=== PATIENT | female | born 1935 | race African-American/Black ===

== ENCOUNTER 2017-09-14 15:41 | Inpatient (IN) ==
[2017-09-14] MEDS ORDERED: DEXTROSE 50% 25 GM/50 ML VIAL IV PRN (18:19)
[2017-09-14] MEDS ORDERED: GLUCAGON 1 MG VIAL IM PRN (18:19)
[2017-09-14 18:58] LABS: Basophils % 0.9 % (0.0-0.8); Eosinophils % 0.4 % (0.00-10.9); Hematocrit 30.4 VOL% (35.7-47.0); Immature Granulocytes % 0.9 %; Immature Granulocytes Absolute 0.02 #; Lymphocytes # 0.9 10*3/uL (1.4-4.0); Lymphocytes % 41.2 % (21.3-54.2); Mean Corpuscular HGB Conc 32.9 GM/DL (32-36); Mean Corpuscular Hemoglobin 28 PG (27-34); Mean Corpuscular Volume 83.7 FL (87-102); Mean Platelet Volume 9.7 FL (9.6-12.0); Monocytes # 0.4 10*3/uL (0.11-0.8); Monocytes % 16.4 % (1.7-12.7); Neutrophils # 0.9 10*3/uL (1.4-7.4); Neutrophils % 40.2 % (38.7-73.9); Platelet Count 140 T/CUMM (130-400); Red Blood Count 3.63 MC/CUMM (3.8-5.5); Red Cell Distribution Width 13.3 % (9.3-17.3); White Blood Count 2.3 T/CUMM (4-12)
[2017-09-14 19:07] LABS: INR 1.1; PT Patient Result 11.5 SECS; Partial Thromboplastin Time 29.6 SECS (0-40)
[2017-09-14 19:18] LABS: Lymphocytes 40 % (20-55); Platelet Estimate Decreased; Segmented Neutrophils 46 % (50-85); Total Cells Counted 100
[2017-09-14 19:19] LABS: Hypochromasia 1+; Ovalocytes 1+; Poikilocytosis 1+; Polychromasia Slight
[2017-09-14 19:26] LABS: Albumin 2.6 G/DL (3.4-5.0); Bilirubin,Total 0.4 MG/DL (0.2-1.0); Calcium 7.9 MG/DL (8.5-10.1); Osmolality,Calculated 269.1 MOS/KG (273-304); Potassium 3.3 MMOL/L (3.5-5.1); Total Protein 7.2 G/DL (6.4-8.3)
[2017-09-14 19:30] LABS: ABG Base Excess 7.5 MMOL/L (-2.5-2.5); ABG HCO3 31.3 MMOL/L (20-26); ABG Oxygen Saturation 99.6 % (95-100); ABG PCO2 23.2 MM HG (35-48); ABG TCO2 24.8 MMOL/L (23-27)
[2017-09-14 19:35] LABS: ABG PH 7.679 (7.35-7.45)
[2017-09-14] MEDS ORDERED: APIXABAN 2.5 MG TABLET PO SCH (21:00)
[2017-09-14] MEDS ORDERED: POTASSIUM CHLORIDE 20 MEQ TABLET PO ONE (21:00)
[2017-09-14] MEDS: PHENYTOIN 100 MG/4 ML UDCUP PO SCH (22:18)
[2017-09-14] MEDS: INSULIN LISPRO 100 UNIT/ML SUBCUT SCH (22:18)
[2017-09-14] MEDS: ENOXAPARIN 80 MG/0.8 ML SYRINGE SUBCUT SCH (22:18)
[2017-09-14] MEDS: COLCHICINE 0.6 MG TABLET PO SCH (22:18)
[2017-09-14] MEDS: amLODIPine 10 MG TABLET PO SCH (22:25)
[2017-09-15 00:46] LABS: Apearance,Urine CLEAR (Clear); Bilirubin,Urine Negative (Negative); Blood, Urine Negative (Negative); Glucose,Urine (UA) Negative (Negative); Ketones,Urine Negative (Negative); Mucus,Urine Occasional /LPF (Occasional); Nitrite,Urine Negative (Negative); Protein,Urine Negative; RBC,Urine <1 /HPF (0-4); Squamous Epithelial Cell,Urine Occasional /HPF (0-10); Urine Color Yellow (Yellow); Urine Specific Gravity 1.016 (1.001-1.035); Urine Urobilinogen < 2.0 EU/DL (0.2-1.0); WBC,Urine <1 /HPF (0-6)
[2017-09-15 03:25] LABS: Basophils % 0.5 % (0.0-0.8); Eosinophils % 1.4 % (0.00-10.9); Hematocrit 29.4 VOL% (35.7-47.0); Hemoglobin 9.8 GM/DL (12.0-16.0); Immature Granulocytes % 0.9 %; Immature Granulocytes Absolute 0.02 #; Lymphocytes # 0.9 10*3/uL (1.4-4.0); Lymphocytes % 41.1 % (21.3-54.2); Mean Corpuscular HGB Conc 33.3 GM/DL (32-36); Mean Corpuscular Hemoglobin 28 PG (27-34); Mean Corpuscular Volume 83.5 FL (87-102); Mean Platelet Volume 9.1 FL (9.6-12.0); Monocytes # 0.4 10*3/uL (0.11-0.8); Monocytes % 19.2 % (1.7-12.7); Neutrophils # 0.8 10*3/uL (1.4-7.4); Neutrophils % 36.9 % (38.7-73.9); Platelet Count 134 T/CUMM (130-400); Red Blood Count 3.52 MC/CUMM (3.8-5.5); Red Cell Distribution Width 13.7 % (9.3-17.3); White Blood Count 2.1 T/CUMM (4-12)
[2017-09-15 04:02] LABS: Calcium 7.9 MG/DL (8.5-10.1); Magnesium 2.4 MG/DL (1.8-2.4); Osmolality,Calculated 273.8 MOS/KG (273-304); Potassium 4.1 MMOL/L (3.5-5.1)
[2017-09-15 04:41] LABS: Band Neutrophils 1 % (0-10); Eosinophils 3 % (0-10); Lymphocytes 50 % (20-55); Platelet Estimate Normal; Segmented Neutrophils 42 % (50-85); Total Cells Counted 100
[2017-09-15 04:59] LABS: Albumin 2.5 G/DL (3.4-5.0); Bilirubin,Total 0.6 MG/DL (0.2-1.0); Calcium 7.9 MG/DL (8.5-10.1); Potassium 4.1 MMOL/L (3.5-5.1); Total Protein 6.7 G/DL (6.4-8.3)
[2017-09-15] MEDS: INSULIN LISPRO 100 UNIT/ML SUBCUT SCH ×4 (09:03→20:32)
[2017-09-15] MEDS: amLODIPine 10 MG TABLET PO SCH ×3 (09:06→20:35)
[2017-09-15] MEDS: PANTOPRAZOLE 40 MG TABLET PO SCH (09:09)
[2017-09-15] MEDS: COLCHICINE 0.6 MG TABLET PO SCH ×2 (09:09→20:35)
[2017-09-15] MEDS: ENOXAPARIN 80 MG/0.8 ML SYRINGE SUBCUT SCH (09:10)
[2017-09-15] MEDS: PHENYTOIN 100 MG/4 ML UDCUP PO SCH ×3 (09:10→20:35)
[2017-09-16 08:38] LABS: Basophils % 0.6 % (0.0-0.8); Eosinophils % 1.2 % (0.00-10.9); Hematocrit 30.6 VOL% (35.7-47.0); Hemoglobin 10.1 GM/DL (12.0-16.0); Immature Granulocytes % 0.6 %; Immature Granulocytes Absolute 0.01 #; Lymphocytes # 0.5 10*3/uL (1.4-4.0); Lymphocytes % 30.5 % (21.3-54.2); Mean Corpuscular Hemoglobin 28 PG (27-34); Mean Corpuscular Volume 85.2 FL (87-102); Mean Platelet Volume 10.1 FL (9.6-12.0); Monocytes # 0.4 10*3/uL (0.11-0.8); Neutrophils # 0.7 10*3/uL (1.4-7.4); Neutrophils % 45.1 % (38.7-73.9); Platelet Count 122 T/CUMM (130-400); Red Blood Count 3.59 MC/CUMM (3.8-5.5); Red Cell Distribution Width 13.8 % (9.3-17.3); White Blood Count 1.6 T/CUMM (4-12)
[2017-09-16 09:09] LABS: Albumin 2.5 G/DL (3.4-5.0); Bilirubin,Total 0.6 MG/DL (0.2-1.0); Calcium 7.7 MG/DL (8.5-10.1); Osmolality,Calculated 274.7 MOS/KG (273-304); Potassium 3.9 MMOL/L (3.5-5.1); Total Protein 7.2 G/DL (6.4-8.3)
[2017-09-16 09:15] LABS: Band Neutrophils 1 % (0-10); Eosinophils 1 % (0-10); Hypochromasia 1+; Lymphocytes 28 % (20-55); Microcytosis Slight; Ovalocytes Slight; Platelet Estimate Adequate; Segmented Neutrophils 50 % (50-85); Total Cells Counted 100
[2017-09-16] MEDS: INSULIN LISPRO 100 UNIT/ML SUBCUT SCH ×4 (09:50→20:54)
[2017-09-16] MEDS: PANTOPRAZOLE 40 MG TABLET PO SCH (09:56)
[2017-09-16] MEDS: COLCHICINE 0.6 MG TABLET PO SCH ×2 (09:56→21:07)
[2017-09-16] MEDS: PHENYTOIN 100 MG/4 ML UDCUP PO SCH ×3 (09:58→21:08)
[2017-09-16] MEDS: amLODIPine 10 MG TABLET PO SCH ×3 (10:02→21:06)
[2017-09-16] MEDS: WARFARIN 10 MG TABLET PO SCH (17:30)
[2017-09-17 07:31] LABS: Basophils % 0.7 % (0.0-0.8); Hematocrit 29.2 VOL% (35.7-47.0); Hemoglobin 9.6 GM/DL (12.0-16.0); Immature Granulocytes % 0.7 %; Immature Granulocytes Absolute 0.01 #; Lymphocytes # 0.5 10*3/uL (1.4-4.0); Lymphocytes % 34.9 % (21.3-54.2); Mean Corpuscular HGB Conc 32.9 GM/DL (32-36); Mean Corpuscular Hemoglobin 28 PG (27-34); Mean Corpuscular Volume 84.4 FL (87-102); Monocytes # 0.3 10*3/uL (0.11-0.8); Monocytes % 22.1 % (1.7-12.7); Neutrophils # 0.6 10*3/uL (1.4-7.4); Neutrophils % 39.6 % (38.7-73.9); Platelet Count 108 T/CUMM (130-400); Red Blood Count 3.46 MC/CUMM (3.8-5.5); Red Cell Distribution Width 13.7 % (9.3-17.3); White Blood Count 1.5 T/CUMM (4-12)
[2017-09-17 08:13] LABS: Eosinophils 3 % (0-10); Lymphocytes 36 % (20-55); Segmented Neutrophils 44 % (50-85); Total Cells Counted 100
[2017-09-17 08:14] LABS: Hypochromasia 1+; Microcytosis Slight; Ovalocytes Few
[2017-09-17 08:15] LABS: Platelet Estimate Decreased
[2017-09-17] MEDS: INSULIN LISPRO 100 UNIT/ML SUBCUT SCH ×4 (08:16→21:40)
[2017-09-17] MEDS: amLODIPine 10 MG TABLET PO SCH ×3 (08:38→20:27)
[2017-09-17] MEDS: LACTULOSE 20 GM/30 ML UDCUP PO PRN (08:45)
[2017-09-17] MEDS: PANTOPRAZOLE 40 MG TABLET PO SCH (08:46)
[2017-09-17] MEDS: PHENYTOIN 100 MG/4 ML UDCUP PO SCH ×3 (08:46→20:27)
[2017-09-17] MEDS: COLCHICINE 0.6 MG TABLET PO SCH ×2 (08:46→20:25)
[2017-09-17 12:24] LABS: INR 1.1; PT Patient Result 11.1 SECS
[2017-09-17] MEDS: ENOXAPARIN 80 MG/0.8 ML SYRINGE SUBCUT SCH (17:38)
[2017-09-17] MEDS: WARFARIN 10 MG TABLET PO SCH (17:38)
[2017-09-18 07:01] LABS: Basophils % 0.6 % (0.0-0.8); Eosinophils % 2.2 % (0.00-10.9); Hematocrit 32.4 VOL% (35.7-47.0); Hemoglobin 10.4 GM/DL (12.0-16.0); Lymphocytes # 0.6 10*3/uL (1.4-4.0); Lymphocytes % 32.6 % (21.3-54.2); Mean Corpuscular HGB Conc 32.1 GM/DL (32-36); Mean Corpuscular Hemoglobin 28 PG (27-34); Mean Corpuscular Volume 86.4 FL (87-102); Mean Platelet Volume 9.3 FL (9.6-12.0); Monocytes # 0.3 10*3/uL (0.11-0.8); Monocytes % 17.1 % (1.7-12.7); Neutrophils # 0.9 10*3/uL (1.4-7.4); Neutrophils % 47.5 % (38.7-73.9); Platelet Count 104 T/CUMM (130-400); Red Blood Count 3.75 MC/CUMM (3.8-5.5); Red Cell Distribution Width 13.8 % (9.3-17.3); White Blood Count 1.8 T/CUMM (4-12)
[2017-09-18 07:26] LABS: Burr Cells 2+; Lymphocytes 19 % (20-55); Platelet Estimate Decreased; Segmented Neutrophils 62 % (50-85); Target Cells Slight; Total Cells Counted 100
[2017-09-18 07:34] LABS: Calcium 7.3 MG/DL (8.5-10.1); Osmolality,Calculated 273.8 MOS/KG (273-304); Potassium 3.9 MMOL/L (3.5-5.1)
[2017-09-18] MEDS: INSULIN LISPRO 100 UNIT/ML SUBCUT SCH ×4 (08:57→22:04)
[2017-09-18] MEDS: COLCHICINE 0.6 MG TABLET PO SCH ×2 (09:00→20:18)
[2017-09-18] MEDS: PHENYTOIN 100 MG/4 ML UDCUP PO SCH ×3 (09:00→20:19)
[2017-09-18] MEDS: ENOXAPARIN 80 MG/0.8 ML SYRINGE SUBCUT SCH ×2 (09:00→20:20)
[2017-09-18] MEDS: PANTOPRAZOLE 40 MG TABLET PO SCH (09:00)
[2017-09-18] MEDS: amLODIPine 10 MG TABLET PO SCH ×2 (09:12→09:22)
[2017-09-18] MEDS: WARFARIN 10 MG TABLET PO SCH (17:58)
[2017-09-19 03:33] LABS: Basophils % 0.5 % (0.0-0.8); Eosinophils # 0.1 10*3/uL (0.0-0.87); Eosinophils % 4.3 % (0.00-10.9); Hemoglobin 9.6 GM/DL (12.0-16.0); Immature Granulocytes % 0.5 %; Immature Granulocytes Absolute 0.01 #; Lymphocytes # 0.8 10*3/uL (1.4-4.0); Lymphocytes % 40.1 % (21.3-54.2); Mean Corpuscular Hemoglobin 28 PG (27-34); Mean Platelet Volume 10.8 FL (9.6-12.0); Monocytes # 0.3 10*3/uL (0.11-0.8); Neutrophils # 0.7 10*3/uL (1.4-7.4); Neutrophils % 38.6 % (38.7-73.9); Platelet Count 96 T/CUMM (130-400); Red Blood Count 3.45 MC/CUMM (3.8-5.5); Red Cell Distribution Width 13.9 % (9.3-17.3); White Blood Count 1.9 T/CUMM (4-12)
[2017-09-19 04:15] LABS: Calcium 7.2 MG/DL (8.5-10.1); Osmolality,Calculated 276.7 MOS/KG (273-304); Potassium 3.8 MMOL/L (3.5-5.1)
[2017-09-19 04:20] LABS: % Iron Saturation 42.6 % (18-50); Ferritin 185.6 ng/ml (8-252); Total Protein 6.3 G/DL (6.4-8.3)
[2017-09-19 04:40] LABS: Band Neutrophils 5 % (0-10); Eosinophils 2 % (0-10); Lymphocytes 27 % (20-55); Metamyelocytes 1 %; Segmented Neutrophils 52 % (50-85); Total Cells Counted 100
[2017-09-19 04:41] LABS: Anisocytosis 1+; Poikilocytosis 2+
[2017-09-19 05:30] LABS: Total Protein (Chem) 6.3 G/DL (6.4-8.3)
[2017-09-19 07:30] LABS: Folate 6.6 NG/ML (5.4-24.0); Vitamin B12 414 PG/ML (211-911)
[2017-09-19] MEDS: INSULIN LISPRO 100 UNIT/ML SUBCUT SCH ×4 (07:47→21:48)
[2017-09-19 08:03] LABS: Albumin (SPE) 2.8 G/DL (3.2-5.3); Albumin (SPE) Rel % 43.9 %; Alpha 1 (SPE) 0.2 G/DL (0.1-0.4); Alpha 2 (SPE) 0.8 G/DL (0.4-1.0); Alpha 2 (SPE) Rel % 12.9 %; Beta (SPE) 0.9 G/DL (0.5-1.1); Beta (SPE) Rel % 14.2 %; Gamma (SPE) 1.6 G/DL (0.7-1.7)
[2017-09-19 08:21] LABS: Immuno Free Light Chain Kappa 6.62 MG/DL (0.33-1.94)
[2017-09-19 08:22] LABS: Immuno Free Light Chain Lambda 7.28 MG/DL (0.57-2.63); Immuno Free Light Chain Ratio 0.91 MG/DL (0.26-1.65)
[2017-09-19] MEDS: LACTULOSE 20 GM/30 ML UDCUP PO PRN ×2 (08:58→15:36)
[2017-09-19] MEDS: PANTOPRAZOLE 40 MG TABLET PO SCH (08:59)
[2017-09-19] MEDS: ENOXAPARIN 80 MG/0.8 ML SYRINGE SUBCUT SCH ×2 (08:59→21:43)
[2017-09-19] MEDS: PHENYTOIN 100 MG/4 ML UDCUP PO SCH ×3 (08:59→21:43)
[2017-09-19] MEDS: amLODIPine 10 MG TABLET PO SCH (08:59)
[2017-09-19] MEDS: COLCHICINE 0.6 MG TABLET PO SCH ×2 (08:59→21:43)
[2017-09-19 09:48] LABS: INR 1.4; PT Patient Result 14.7 SECS
[2017-09-19 10:10] LABS: Albumin 2.3 G/DL (3.4-5.0); Bilirubin,Total 0.5 MG/DL (0.2-1.0); Calcium 7.3 MG/DL (8.5-10.1); Osmolality,Calculated 281.5 MOS/KG (273-304); Total Protein 6.6 G/DL (6.4-8.3)
[2017-09-19 11:48] LABS: Anti-Nuclear Antibody Pattern SPECKLED
[2017-09-19 11:49] LABS: Anti SS-A Antibodies > 100 EU/ML; Anti SS-B Antibodies < 16 EU/ML; Double Stranded DNA Antibodies < 25.0 IU/ML
[2017-09-19] MEDS: WARFARIN 5 MG TABLET PO SCH (17:02)
[2017-09-20 05:45] LABS: Basophils % 0.5 % (0.0-0.8); Eosinophils # 0.1 10*3/uL (0.0-0.87); Eosinophils % 3.8 % (0.00-10.9); Hematocrit 31.4 VOL% (35.7-47.0); Hemoglobin 10.1 GM/DL (12.0-16.0); Immature Granulocytes % 1.1 %; Immature Granulocytes Absolute 0.02 #; Lymphocytes # 0.6 10*3/uL (1.4-4.0); Lymphocytes % 33.9 % (21.3-54.2); Mean Corpuscular HGB Conc 32.2 GM/DL (32-36); Mean Corpuscular Hemoglobin 28 PG (27-34); Mean Corpuscular Volume 86.7 FL (87-102); Mean Platelet Volume 9.2 FL (9.6-12.0); Monocytes # 0.3 10*3/uL (0.11-0.8); Monocytes % 18.3 % (1.7-12.7); Neutrophils # 0.8 10*3/uL (1.4-7.4); Neutrophils % 42.4 % (38.7-73.9); Red Blood Count 3.62 MC/CUMM (3.8-5.5); Red Cell Distribution Width 13.8 % (9.3-17.3); White Blood Count 1.9 T/CUMM (4-12)
[2017-09-20 05:51] LABS: Platelet Count 96 T/CUMM (130-400)
[2017-09-20 06:48] LABS: Calcium 7.3 MG/DL (8.5-10.1); Osmolality,Calculated 271.8 MOS/KG (273-304); Potassium 4.2 MMOL/L (3.5-5.1)
[2017-09-20 07:59] LABS: Eosinophils 5 % (0-10); Hypochromasia 1+; Lymphocytes 32 % (20-55); Microcytosis Slight; Ovalocytes Slight; Segmented Neutrophils 51 % (50-85); Total Cells Counted 100
[2017-09-20 08:00] LABS: Platelet Estimate Decreased
[2017-09-20] MEDS: INSULIN LISPRO 100 UNIT/ML SUBCUT SCH ×4 (08:09→20:29)
[2017-09-20] MEDS: COLCHICINE 0.6 MG TABLET PO SCH ×2 (08:29→20:30)
[2017-09-20] MEDS: ENOXAPARIN 80 MG/0.8 ML SYRINGE SUBCUT SCH (08:30)
[2017-09-20] MEDS: amLODIPine 10 MG TABLET PO SCH (08:30)
[2017-09-20] MEDS: PHENYTOIN 100 MG/4 ML UDCUP PO SCH ×3 (08:30→20:30)
[2017-09-20] MEDS: PANTOPRAZOLE 40 MG TABLET PO SCH (08:30)
[2017-09-20 13:56] LABS: INR 2.2
[2017-09-20 15:03] LABS: PT Patient Result 22.1 SECS
[2017-09-20] MEDS: WARFARIN 5 MG TABLET PO SCH (18:09)
[2017-09-20] MEDS: LACTULOSE 20 GM/30 ML UDCUP PO PRN (20:30)
[2017-09-21 05:43] LABS: Hematocrit 30.4 VOL% (35.7-47.0); Hemoglobin 9.8 GM/DL (12.0-16.0); Mean Corpuscular HGB Conc 32.2 GM/DL (32-36); Mean Corpuscular Hemoglobin 28 PG (27-34); Mean Corpuscular Volume 86.9 FL (87-102); Platelet Count 80 T/CUMM (130-400); Red Cell Distribution Width 14.1 % (9.3-17.3); White Blood Count 1.5 T/CUMM (4-12)
[2017-09-21 05:44] LABS: Basophils % 0.6 % (0.0-0.8); Eosinophils # 0.1 10*3/uL (0.0-0.87); Eosinophils % 5.2 % (0.00-10.9); Immature Granulocytes % 0.6 %; Immature Granulocytes Absolute 0.01 #; Lymphocytes # 0.5 10*3/uL (1.4-4.0); Lymphocytes % 33.1 % (21.3-54.2); Mean Platelet Volume 10.9 FL (9.6-12.0); Monocytes # 0.3 10*3/uL (0.11-0.8); Monocytes % 18.2 % (1.7-12.7); Neutrophils # 0.7 10*3/uL (1.4-7.4); Neutrophils % 42.3 % (38.7-73.9)
[2017-09-21 06:17] LABS: Calcium 7.1 MG/DL (8.5-10.1); Osmolality,Calculated 276.7 MOS/KG (273-304); Potassium 3.8 MMOL/L (3.5-5.1)
[2017-09-21 06:57] LABS: Band Neutrophils 6 % (0-10); Eosinophils 4 % (0-10); Lymphocytes 28 % (20-55); Segmented Neutrophils 42 % (50-85)
[2017-09-21 06:58] LABS: Total Cells Counted 100
[2017-09-21 06:59] LABS: Acanthocytes 1+; Anisocytosis 2+; Ovalocytes 1+; Poikilocytosis 2+
[2017-09-21 07:15] LABS: Partial Thromboplastin Time 37.9 SECS (0-40)
[2017-09-21 07:20] LABS: INR 2.3
[2017-09-21 07:21] LABS: PT Patient Result 23.1 SECS
[2017-09-21] MEDS: INSULIN LISPRO 100 UNIT/ML SUBCUT SCH ×4 (08:46→22:15)
[2017-09-21] MEDS: PHENYTOIN 100 MG/4 ML UDCUP PO SCH ×3 (09:02→22:14)
[2017-09-21] MEDS: amLODIPine 10 MG TABLET PO SCH (09:02)
[2017-09-21] MEDS: COLCHICINE 0.6 MG TABLET PO SCH ×2 (09:02→22:14)
[2017-09-21] MEDS: PANTOPRAZOLE 40 MG TABLET PO SCH (09:03)
[2017-09-21] MEDS: SKIN HEALING OINT (AQUAPHOR) 50 GM TUBE TOP PRN (15:57)
[2017-09-21] MEDS: WARFARIN 5 MG TABLET PO SCH (18:02)
[2017-09-22 03:01] LABS: INR 2.3
[2017-09-22 03:11] LABS: PT Patient Result 23.8 SECS
[2017-09-22] MEDS: INSULIN LISPRO 100 UNIT/ML SUBCUT SCH ×4 (07:56→21:55)
[2017-09-22] MEDS: COLCHICINE 0.6 MG TABLET PO SCH ×2 (08:15→20:49)
[2017-09-22] MEDS: PANTOPRAZOLE 40 MG TABLET PO SCH (08:15)
[2017-09-22] MEDS: PHENYTOIN 100 MG/4 ML UDCUP PO SCH ×3 (08:15→20:49)
[2017-09-22] MEDS: amLODIPine 10 MG TABLET PO SCH (08:15)
[2017-09-22] MEDS: ACETAMINOPHEN 325 MG TABLET PO PRN ×3 (09:37→20:54)
[2017-09-22] MEDS ORDERED: methylPREDNISolone SOD SUC 40 MG/1 ML VIAL IV ONE (15:46)
[2017-09-22] MEDS: WARFARIN 5 MG TABLET PO SCH (17:00)
[2017-09-23 05:48] LABS: INR 2.2; Partial Thromboplastin Time 33.4 SECS (0-40)
[2017-09-23 05:53] LABS: PT Patient Result 22.4 SECS
[2017-09-23] MEDS: INSULIN LISPRO 100 UNIT/ML SUBCUT SCH ×4 (08:12→21:26)
[2017-09-23] MEDS: amLODIPine 10 MG TABLET PO SCH (08:22)
[2017-09-23] MEDS: COLCHICINE 0.6 MG TABLET PO SCH ×2 (08:22→21:22)
[2017-09-23] MEDS: PHENYTOIN 100 MG/4 ML UDCUP PO SCH ×3 (08:22→21:23)
[2017-09-23] MEDS: PANTOPRAZOLE 40 MG TABLET PO SCH (08:22)
[2017-09-23] MEDS: predniSONE 20 MG TABLET PO SCH (08:22)
[2017-09-23] MEDS: WARFARIN 5 MG TABLET PO SCH (17:24)
[2017-09-23] MEDS: LACOSAMIDE 50 MG TABLET PO SCH (21:23)
[2017-09-24 06:46] LABS: INR 2.6
[2017-09-24 06:59] LABS: PT Patient Result 26.2 SECS; Partial Thromboplastin Time 43.9 SECS (0-40)
[2017-09-24] MEDS: LACOSAMIDE 50 MG TABLET PO SCH ×2 (08:57→21:43)
[2017-09-24] MEDS: amLODIPine 10 MG TABLET PO SCH (08:57)
[2017-09-24] MEDS: COLCHICINE 0.6 MG TABLET PO SCH ×2 (08:58→21:43)
[2017-09-24] MEDS: INSULIN LISPRO 100 UNIT/ML SUBCUT SCH ×4 (08:58→21:44)
[2017-09-24] MEDS: predniSONE 20 MG TABLET PO SCH (08:58)
[2017-09-24] MEDS: PANTOPRAZOLE 40 MG TABLET PO SCH (08:58)
[2017-09-24] MEDS: PHENYTOIN 100 MG/4 ML UDCUP PO SCH ×2 (08:59→21:44)
[2017-09-24] MEDS: SKIN HEALING OINT (AQUAPHOR) 50 GM TUBE TOP PRN (14:56)
[2017-09-24] MEDS: WARFARIN 5 MG TABLET PO SCH (17:17)
[2017-09-25 04:44] LABS: Eosinophils % 0.8 % (0.00-10.9); Hematocrit 28.7 VOL% (35.7-47.0); Hemoglobin 9.5 GM/DL (12.0-16.0); Immature Granulocytes % 0.8 %; Immature Granulocytes Absolute 0.02 #; Lymphocytes # 0.8 10*3/uL (1.4-4.0); Lymphocytes % 30.6 % (21.3-54.2); Mean Corpuscular HGB Conc 33.1 GM/DL (32-36); Mean Corpuscular Hemoglobin 28 PG (27-34); Mean Corpuscular Volume 84.4 FL (87-102); Monocytes # 0.4 10*3/uL (0.11-0.8); Monocytes % 15.7 % (1.7-12.7); Neutrophils # 1.3 10*3/uL (1.4-7.4); Neutrophils % 52.1 % (38.7-73.9); Red Cell Distribution Width 13.7 % (9.3-17.3); White Blood Count 2.5 T/CUMM (4-12)
[2017-09-25 05:14] LABS: Calcium 7.6 MG/DL (8.5-10.1); Magnesium 1.4 MG/DL (1.8-2.4); Osmolality,Calculated 277.7 MOS/KG (273-304); Potassium 4.2 MMOL/L (3.5-5.1)
[2017-09-25 05:25] LABS: Platelet Count 74 T/CUMM (130-400)
[2017-09-25 05:44] LABS: INR 2.5
[2017-09-25 05:55] LABS: PT Patient Result 25.8 SECS; Partial Thromboplastin Time 43.9 SECS (0-40)
[2017-09-25 06:08] LABS: Lymphocytes 28 % (20-55); Segmented Neutrophils 56 % (50-85); Total Cells Counted 100
[2017-09-25 06:09] LABS: Ovalocytes Slight; Platelet Estimate Adequate
[2017-09-25 06:10] LABS: Burr Cells Slight
[2017-09-25] MEDS ORDERED: LACOSAMIDE 50 MG TABLET PO SCH (09:10)
[2017-09-25] MEDS: INSULIN LISPRO 100 UNIT/ML SUBCUT SCH ×2 (09:24→12:45)
[2017-09-25] MEDS: amLODIPine 10 MG TABLET PO SCH (09:31)
[2017-09-25] MEDS: PANTOPRAZOLE 40 MG TABLET PO SCH (09:31)
[2017-09-25] MEDS: COLCHICINE 0.6 MG TABLET PO SCH (09:31)
[2017-09-25] MEDS: predniSONE 20 MG TABLET PO SCH (09:32)
[2017-09-25] MEDS ORDERED: LACOSAMIDE 50 MG TABLET PO ONE (09:35)
[2017-09-25] MEDS: PHENYTOIN 100 MG/4 ML UDCUP PO SCH (09:38)
[2017-09-25] MEDS: LACOSAMIDE 50 MG TABLET PO SCH (09:39)
[2017-09-25] MEDS: LACTULOSE 20 GM/30 ML UDCUP PO PRN (09:40)
[2017-09-25 12:12] VITALS: BP 141/70
[2017-09-25 16:02] LABS: DRVVT Confirmation 0.7 ratio (0.0 - 1.1); DRVVT Mix Ratio (Mayo Reflex) 1.2 ratio (0.0 - 1.1); PT Mix 1:1 (Mayo Reflex) 14.3 sec; Thrombin Time (Bovine), P 22 sec (15 - 23)
[2017-09-26] MEDS ORDERED: PHENYTOIN 100 MG/4 ML UDCUP PO SCH (09:00)
[2017-09-26 12:00] LABS: DRVVT Screen Ratio 1.5 ratio (0.0 - 1.1)
[2017-09-26 14:30] LABS: Phospholipid Ab IgM, S < 9.4 MPL
== END 2017-09-25 14:00 | disposition home or self-care (01) | DRG 176 ==
LOC: SUATTDRO 17:15 → N.3E 17:15 → N.4E 09-15 20:00
PROVIDERS: ADMIT Internal Medicine; ATTEND Internal Medicine

== ENCOUNTER 2018-02-04 09:24 | Observation (INO) ==
[2018-02-04 10:26] LABS: Basophils % 0.4 % (0.0-0.8); Eosinophils % 0.4 % (0.00-10.9); Hematocrit 37.8 VOL% (35.7-47.0); Hemoglobin 12.5 GM/DL (12.0-16.0); Immature Granulocytes % 0.8 %; Immature Granulocytes Absolute 0.02 #; Lymphocytes # 0.6 10*3/uL (1.4-4.0); Lymphocytes % 23.2 % (21.3-54.2); Mean Corpuscular HGB Conc 33.1 GM/DL (32-36); Mean Corpuscular Hemoglobin 28 PG (27-34); Mean Corpuscular Volume 84.2 FL (87-102); Mean Platelet Volume 9.2 FL (9.6-12.0); Monocytes # 0.3 10*3/uL (0.11-0.8); Monocytes % 11.4 % (1.7-12.7); Neutrophils # 1.7 10*3/uL (1.4-7.4); Neutrophils % 63.8 % (38.7-73.9); Platelet Count 153 T/CUMM (130-400); Red Blood Count 4.49 MC/CUMM (3.8-5.5); Red Cell Distribution Width 13.9 % (9.3-17.3); White Blood Count 2.6 T/CUMM (4-12)
[2018-02-04 10:33] LABS: INR 1.8; PT Patient Result 18.7 SECS; Partial Thromboplastin Time 31.8 SECS (0-40)
[2018-02-04 13:16] LABS: Apearance,Urine CLEAR (Clear); Bilirubin,Urine Negative (Negative); Blood, Urine Negative (Negative); Glucose,Urine (UA) Negative (Negative); Ketones,Urine Negative (Negative); Nitrite,Urine Negative (Negative); Protein,Urine 30 MG/DL; RBC,Urine 2 /HPF (0-4); Squamous Epithelial Cell,Urine Occasional /HPF (0-10); Urine Color Straw (Yellow); Urine Specific Gravity 1.004 (1.001-1.035); Urine Urobilinogen < 2.0 EU/DL (0.2-1.0); WBC,Urine <1 /HPF (0-6)
[2018-02-04] MEDS ORDERED: ONDANSETRON 4 MG/2 ML VIAL IV PRN (13:37)
[2018-02-04 14:40] LABS: Alanine Aminotransferase 50 U/L (13-56); Alkaline Phosphatase 52 U/L (45-117); Aspartate Amino Transferase 46 U/L (0-37); Bilirubin,Total < 0.39 MG/DL (0.2-1.0); Blood Urea Nitrogen 14 MG/DL (7-18); Calcium 8.2 MG/DL (8.5-10.1); Glucose 178 MG/DL (74-106); Osmolality,Calculated 285.3 MOS/KG (273-304); Potassium 3.3 MMOL/L (3.5-5.1); Sodium 141 MMOL/L (136-145); Total Protein 8.1 G/DL (6.4-8.3)
[2018-02-04] MEDS ORDERED: POTASSIUM CHLORIDE 20 MEQ TABLET PO STA (15:58)
[2018-02-04] MEDS ORDERED: WARFARIN 5 MG TABLET PO SCH (18:00)
[2018-02-04] MEDS ORDERED: SODIUM CHLORIDE 0.9% 1,000 ML IV SCH (18:30)
[2018-02-04] MEDS: COLCHICINE 0.6 MG TABLET PO SCH (20:17)
[2018-02-04] MEDS: DOCUSATE SODIUM 100 MG CAPSULE PO SCH (20:18)
[2018-02-04] MEDS: PHENYTOIN ER 100 MG CAPSULE PO SCH (20:18)
[2018-02-05 05:50] LABS: Basophils % 0.5 % (0.0-0.8); Eosinophils % 0.5 % (0.00-10.9); Hematocrit 33.8 VOL% (35.7-47.0); Hemoglobin 11.2 GM/DL (12.0-16.0); Immature Granulocytes % 0.5 %; Immature Granulocytes Absolute 0.01 #; Lymphocytes # 0.9 10*3/uL (1.4-4.0); Lymphocytes % 46.1 % (21.3-54.2); Mean Corpuscular HGB Conc 33.1 GM/DL (32-36); Mean Corpuscular Hemoglobin 28 PG (27-34); Mean Corpuscular Volume 85.4 FL (87-102); Mean Platelet Volume 9.4 FL (9.6-12.0); Monocytes # 0.4 10*3/uL (0.11-0.8); Monocytes % 18.1 % (1.7-12.7); Neutrophils # 0.7 10*3/uL (1.4-7.4); Neutrophils % 34.3 % (38.7-73.9); Platelet Count 139 T/CUMM (130-400); Red Blood Count 3.96 MC/CUMM (3.8-5.5); Red Cell Distribution Width 14.2 % (9.3-17.3); White Blood Count 1.9 T/CUMM (4-12)
[2018-02-05 05:54] LABS: INR 1.8; PT Patient Result 18.6 SECS
[2018-02-05 06:09] LABS: Calcium 7.7 MG/DL (8.5-10.1); Potassium 4.1 MMOL/L (3.5-5.1)
[2018-02-05 06:25] LABS: Eosinophils 1 % (0-10); Lymphocytes 50 % (20-55); Platelet Estimate Normal; Segmented Neutrophils 33 % (50-85); Total Cells Counted 100
[2018-02-05 06:26] LABS: Hypochromasia 1+; Ovalocytes Slight
[2018-02-05] MEDS ORDERED: DEXTROSE 50% 25 GM/50 ML VIAL IV PRN ×2 (09:28→09:29)
[2018-02-05] MEDS ORDERED: GLUCAGON 1 MG VIAL IM PRN ×2 (09:28→09:29)
[2018-02-05] MEDS: amLODIPine 10 MG TABLET PO SCH (09:41)
[2018-02-05] MEDS: COLCHICINE 0.6 MG TABLET PO SCH (09:41)
[2018-02-05] MEDS: predniSONE 10 MG TABLET PO SCH (09:42)
[2018-02-05] MEDS: PANTOPRAZOLE 40 MG TABLET PO SCH (09:42)
[2018-02-05] MEDS: DOCUSATE SODIUM 100 MG CAPSULE PO SCH ×2 (09:42→20:47)
[2018-02-05] MEDS: LACOSAMIDE 50 MG TABLET PO SCH (09:42)
[2018-02-05] MEDS: PHENYTOIN ER 100 MG CAPSULE PO SCH ×2 (09:42→20:47)
[2018-02-05] MEDS ORDERED: SKIN HEALING OINT (AQUAPHOR) 50 GM TUBE TOP PRN (12:01)
[2018-02-05] MEDS: INSULIN REGULAR 100 UNIT/ML SUBCUT SCH ×3 (12:13→20:48)
[2018-02-05] MEDS: RIVAROXABAN 15 MG TABLET PO SCH (17:47)
[2018-02-05] MEDS ORDERED: WARFARIN 7.5 MG TABLET PO SCH (18:00)
[2018-02-05] MEDS: GABAPENTIN 300 MG CAPSULE PO SCH (20:47)
[2018-02-06 04:28] LABS: Basophils % 0.9 % (0.0-0.8); Eosinophils % 1.4 % (0.00-10.9); Hematocrit 34.8 VOL% (35.7-47.0); Hemoglobin 11.1 GM/DL (12.0-16.0); Immature Granulocytes % 0.5 %; Immature Granulocytes Absolute 0.01 #; Lymphocytes # 0.9 10*3/uL (1.4-4.0); Lymphocytes % 40.8 % (21.3-54.2); Mean Corpuscular HGB Conc 31.9 GM/DL (32-36); Mean Corpuscular Hemoglobin 28 PG (27-34); Mean Corpuscular Volume 86.6 FL (87-102); Mean Platelet Volume 9.4 FL (9.6-12.0); Monocytes # 0.4 10*3/uL (0.11-0.8); Neutrophils # 0.9 10*3/uL (1.4-7.4); Neutrophils % 39.4 % (38.7-73.9); Platelet Count 138 T/CUMM (130-400); Red Blood Count 4.02 MC/CUMM (3.8-5.5); White Blood Count 2.2 T/CUMM (4-12)
[2018-02-06 04:54] LABS: Calcium 7.6 MG/DL (8.5-10.1); Osmolality,Calculated 285.1 MOS/KG (273-304); Potassium 3.6 MMOL/L (3.5-5.1)
[2018-02-06 06:10] LABS: Eosinophils 4 % (0-10); Lymphocytes 45 % (20-55); Segmented Neutrophils 42 % (50-85); Total Cells Counted 100
[2018-02-06 06:11] LABS: Atypical Lymphocytes Few; Hypochromasia 1+; Microcytosis 1+; Ovalocytes Slight
[2018-02-06 06:12] LABS: Platelet Estimate Adequate
[2018-02-06] MEDS: DOCUSATE SODIUM 100 MG CAPSULE PO SCH ×2 (08:57→20:47)
[2018-02-06] MEDS: PHENYTOIN ER 100 MG CAPSULE PO SCH ×2 (08:57→20:47)
[2018-02-06] MEDS: predniSONE 10 MG TABLET PO SCH (08:57)
[2018-02-06] MEDS: amLODIPine 10 MG TABLET PO SCH (08:57)
[2018-02-06] MEDS: INSULIN REGULAR 100 UNIT/ML SUBCUT SCH ×4 (08:57→20:47)
[2018-02-06] MEDS: PANTOPRAZOLE 40 MG TABLET PO SCH (08:57)
[2018-02-06] MEDS: LACOSAMIDE 50 MG TABLET PO SCH (08:57)
[2018-02-06] MEDS: RIVAROXABAN 15 MG TABLET PO SCH ×2 (09:00→18:33)
[2018-02-06] MEDS: MAGNESIUM HYDROXIDE SUSP 30 ML UDCUP PO PRN (14:19)
[2018-02-06] MEDS: GABAPENTIN 300 MG CAPSULE PO SCH (20:47)
[2018-02-07] MEDS: PANTOPRAZOLE 40 MG TABLET PO SCH (09:26)
[2018-02-07] MEDS: DOCUSATE SODIUM 100 MG CAPSULE PO SCH ×2 (09:26→21:21)
[2018-02-07] MEDS: LACOSAMIDE 50 MG TABLET PO SCH (09:26)
[2018-02-07] MEDS: predniSONE 10 MG TABLET PO SCH (09:27)
[2018-02-07] MEDS: PHENYTOIN ER 100 MG CAPSULE PO SCH ×2 (09:27→21:21)
[2018-02-07] MEDS: INSULIN REGULAR 100 UNIT/ML SUBCUT SCH ×4 (09:27→21:21)
[2018-02-07] MEDS: RIVAROXABAN 15 MG TABLET PO SCH ×2 (10:18→17:45)
[2018-02-07] MEDS: amLODIPine 10 MG TABLET PO SCH (10:18)
[2018-02-07] MEDS: POLYETHYLENE GLYCOL POWDER 17 GM PACK PO SCH (10:18)
[2018-02-07] MEDS: GABAPENTIN 300 MG CAPSULE PO SCH (21:21)
[2018-02-08 05:09] LABS: Basophils % 0.4 % (0.0-0.8); Eosinophils % 1.5 % (0.00-10.9); Hematocrit 36.4 VOL% (35.7-47.0); Hemoglobin 12.2 GM/DL (12.0-16.0); Immature Granulocytes % 0.4 %; Immature Granulocytes Absolute 0.01 #; Lymphocytes # 1.1 10*3/uL (1.4-4.0); Lymphocytes % 39.7 % (21.3-54.2); Mean Corpuscular HGB Conc 33.5 GM/DL (32-36); Mean Corpuscular Hemoglobin 28 PG (27-34); Mean Corpuscular Volume 84.3 FL (87-102); Monocytes # 0.4 10*3/uL (0.11-0.8); Monocytes % 14.6 % (1.7-12.7); Neutrophils # 1.2 10*3/uL (1.4-7.4); Neutrophils % 43.4 % (38.7-73.9); Platelet Count 132 T/CUMM (130-400); Red Blood Count 4.32 MC/CUMM (3.8-5.5); Red Cell Distribution Width 13.9 % (9.3-17.3); White Blood Count 2.7 T/CUMM (4-12)
[2018-02-08 05:29] LABS: INR 1.5; PT Patient Result 15.4 SECS
[2018-02-08 05:34] LABS: Hypochromasia 1+; Microcytosis Slight; Ovalocytes Slight; Platelet Estimate Normal
[2018-02-08 05:37] LABS: Calcium 7.9 MG/DL (8.5-10.1); Potassium 3.8 MMOL/L (3.5-5.1)
[2018-02-08] MEDS: INSULIN REGULAR 100 UNIT/ML SUBCUT SCH ×4 (07:44→20:55)
[2018-02-08] MEDS: amLODIPine 10 MG TABLET PO SCH (08:36)
[2018-02-08] MEDS: LACOSAMIDE 50 MG TABLET PO SCH (08:36)
[2018-02-08] MEDS: predniSONE 10 MG TABLET PO SCH (08:37)
[2018-02-08] MEDS: PHENYTOIN ER 100 MG CAPSULE PO SCH ×2 (08:37→20:49)
[2018-02-08] MEDS: PANTOPRAZOLE 40 MG TABLET PO SCH (08:37)
[2018-02-08] MEDS: RIVAROXABAN 15 MG TABLET PO SCH ×2 (08:37→16:55)
[2018-02-08] MEDS: DOCUSATE SODIUM 100 MG CAPSULE PO SCH ×2 (08:37→20:49)
[2018-02-08] MEDS: POLYETHYLENE GLYCOL POWDER 17 GM PACK PO SCH (08:37)
[2018-02-08] MEDS: MAGNESIUM HYDROXIDE SUSP 30 ML UDCUP PO PRN (13:46)
[2018-02-08] MEDS: GABAPENTIN 300 MG CAPSULE PO SCH (20:49)
[2018-02-09] MEDS: INSULIN REGULAR 100 UNIT/ML SUBCUT SCH ×2 (09:07→12:39)
[2018-02-09] MEDS: LACOSAMIDE 50 MG TABLET PO SCH (09:08)
[2018-02-09] MEDS: predniSONE 10 MG TABLET PO SCH (09:09)
[2018-02-09] MEDS: PHENYTOIN ER 100 MG CAPSULE PO SCH (09:09)
[2018-02-09] MEDS: DOCUSATE SODIUM 100 MG CAPSULE PO SCH (09:09)
[2018-02-09] MEDS: amLODIPine 10 MG TABLET PO SCH (09:09)
[2018-02-09] MEDS: RIVAROXABAN 15 MG TABLET PO SCH (09:09)
[2018-02-09] MEDS: POLYETHYLENE GLYCOL POWDER 17 GM PACK PO SCH (09:10)
[2018-02-09] MEDS: PANTOPRAZOLE 40 MG TABLET PO SCH (09:10)
[2018-02-09 12:06] VITALS: BP 136/80
== END 2018-02-09 13:15 | disposition home or self-care (01) ==
LOC: EDUNIT# → EDBD → N.EDINP 09:24 → N.ED 09:24 → SUATTDRO 13:37 → N.2E 17:09
PROVIDERS: ADMIT Internal Medicine; ATTEND Internal Medicine